=== PATIENT | male | born 1950 | race Caucasian/White ===

== ENCOUNTER 2017-09-10 00:21 | Emergency (ER) | payer OTHER ==
[2017-09-10 02:39] LABS: ADD MAN DIFF? NO
[2017-09-10] MEDS: SOD CHLORIDE 0.9% 500 ML IV (02:56)
[2017-09-10 03:05] LABS: ALANINE AMINOTRANSFERASE 29 IU/L (13-69); ALBUMIN/GLOBULIN RATIO 1.08; ALKALINE PHOSPHATASE 169 IU/L (42-121); ANION GAP 16 (8-16); ASPARTATE AMINO TRANSFERASE 49 IU/L (15-46); BILIRUBIN,INDIRECT 0.7 mg/dl (0-1.1); BILIRUBIN,TOTAL 0.7 mg/dl (0.2-1.3); BLOOD UREA NITROGEN 19 mg/dl (7-20); CARBON DIOXIDE 25 mmol/L (21-31); CHLORIDE 105 mmol/L (97-110); CREATININE 0.68 mg/dl (0.61-1.24); MAGNESIUM 1.9 mg/dl (1.7-2.5); PHOSPHORUS 3.6 mg/dl (2.5-4.9); POTASSIUM 4.8 mmol/L (3.5-5.1); SODIUM 141 mmol/L (135-144); TOTAL PROTEIN 7.7 g/dl (6.1-8.1)
[2017-09-10 03:08] LABS: GLUCOSE 418 mg/dl (70-220)
[2017-09-10 03:17] LABS: TROPONIN-I 0.024 ng/ml (0.000-0.120)
[2017-09-10 03:50] LABS: WHITE BLOOD COUNT 3.5 10^3/ul (4.8-10.8)
[2017-09-10 03:50] LABS: ABNORMAL IP MESSAGE 1; BASOPHILS % 0.6 % (0.0-2.0); EOSINOPHILS # 0.1 10^3/ul (0.0-0.5); EOSINOPHILS % 3.4 % (0.0-7.0); HEMATOCRIT 35.3 % (42.0-52.0); HEMOGLOBIN 12.3 g/dl (14.0-18.0); LYMPHOCYTES % 29.5 % (15.0-51.0); MEAN CORPUSCULAR HEMOGLOBIN 30.3 pg (29.0-33.0); MEAN CORPUSCULAR HGB CONC 34.8 g/dl (32.0-37.0); MEAN CORPUSCULAR VOLUME 86.9 fl (82.0-101.0); MEAN PLATELET VOLUME 11.8 fl (7.4-10.4); MONOCYTE # 0.2 10^3/ul (0.3-0.9); MONOCYTES % 6.8 % (0.0-11.0); NEUTROPHIL # 2.1 10^3/ul (1.6-7.5); NEUTROPHILS % 59.4 % (39.0-77.0); POSITIVE DIFF @See below; RED BLOOD COUNT 4.06 10^6/ul (4.70-6.10); RED CELL DISTRIBUTION WIDTH 14.7 % (11.5-14.5)
[2017-09-10 04:07] LABS: PLATELET COUNT 25 10^3/UL (140-415)
[2017-09-10 04:09] LABS: PATH REVIEW? YES-PATH TO CONFIRM
[2017-09-10 04:39] LABS: EOSINOPHILS % (M) 4 % (0-7); LYMPHOCYTES #M 1.2 10^3/ul (0.8-2.9); LYMPHOCYTES % (M) 36 % (15-51); MONOCYTE #M 0.1 10^3/ul (0.3-0.9); MONOCYTES % (M) 5 % (0-11); PLATELET ESTIMATE SIG DECREASED; SEGMENTED NEUTROPHILS (M) % 56 % (39-77); SMUDGE%M 31 % (0-0)
[2017-09-10] MEDS: INSULIN LISPRO 100 UNIT/ML VIAL SC (05:02)
[2017-09-10 16:05] LABS: PATH REVIEW CH
== END 2017-09-10 07:16 | disposition home or self-care (01) ==
LOC: E/R 00:21
DX: E11.65 Type 2 diabetes mellitus with hyperglycemia (principal); R42 Dizziness and giddiness; Z87.891 Personal history of nicotine dependence
CPT/HCPCS: 36415; 71045; 80053; 82962; 83605; 83735; 84100; 84484; 85025; 93005; 96372; 99285-25